=== PATIENT | female | born 1970 | race Caucasian/White ===

== ENCOUNTER → 2016-07-29 07:44 | Emergency (ER) | payer OTHER ==
[~2016-07-29 07:44] MED LIST: Dexamethasone IV* 4 MG/ML 1 ML (4 MG) IV SLOW PU ONE; Ketorolac INJ* 30 MG/ML 1 ML VIAL IV ONE; NS 0.9% 1000 ML* 1,000 ML IV ONE; Orphenadrine Citrate IV* 30 MG/ML 2 ML VIAL IM ONE
[2016-07-29 09:28] LABS: Hematocrit 41 % (35-47); Hemoglobin 13.8 g/dl (12.0-16.0); Mean Corpuscular HGB Conc 33 g/dl (31-36); Mean Corpuscular Hemoglobin 34 pg (27-31); Mean Corpuscular Volume 103 fL (80-97); Mean Platelet Volume 8 um3 (7.4-10.4); Red Blood Count 4.01 10^6/ul (4.0-5.4); Red Cell Distribution Width 13 % (10.5-15); White Blood Count 8.9 10^3/ul (3.5-10.8)
[2016-07-29 09:43] LABS: ALT 19 U/L (7-52); AST 23 U/L (13-39); Albumin 4.4 g/dL (3.2-5.2); Alkaline Phosphatase 36 U/L (34-104); Anion Gap 7 mmol/L (2-11); BUN/Creatinine Ratio 12.7 (8-20); Blood Urea Nitrogen 9 mg/dL (6-24); CO2 Carbon Dioxide 27 mmol/L (22-32); Calcium 9.4 mg/dL (8.6-10.3); Chloride 102 mmol/L (101-111); EGFR Non-African American 89.4 (>60); Globulin 2.8 g/dL (2-4); Glucose 89 mg/dL (70-100); Lipase 29 U/L (11.0-82.0); Potassium 3.7 mmol/L (3.5-5.0); Sodium 136 mmol/L (133-145); Total Protein 7.2 g/dL (6.4-8.9)
--- NOTE | 2016-07-29 11:50 | RAD ---
INDICATION: Right-sided pelvic pain. COMPARISON: Comparison is made with a prior pelvic ultrasound from June 04, 2008. TECHNIQUE: Multiple real-time transvaginal images of the pelvis were obtained. FINDINGS: The uterus is normal in size, shape and echogenicity. The uterus measured 9.0 x 4.6 x 5.3 cm. The endometrial echo measured 0.8 cm in thickness. There is an IUD which appears to be in appropriate position within the endometrial cavity. The right ovary measured 2.6 x 1.9 x 1.9 cm. The left ovary measured 2.2 x 1.7 x 1.3 cm. There is vascular flow within both ovaries. There is a small 0.8 cm follicular cyst within the left ovary. No free intraperitoneal fluid is seen. IMPRESSION: IUD IN PLACE, OTHERWISE UNREMARKABLE STUDY.
[2016-07-29 13:11] VITALS: BP 132/86
--- NOTE | 2016-07-30 07:09 | ED ---
Tommy Calhoun Aidan, scribed for Efrain Austin MD on 07/29/16 at 0946 . Back Pain - HPI Summary HPI Summary: 45 y/o female presents to the ED with a complaint of acute, constant, moderate- to-severe (8/10) right lower back pain that began 3 days ago in the morning and has worsened since onset. When asked about the location of her pain, she points to a focal area of the right lower lumbar. She denies any radiating numbness or tingling down the legs, fever, nausea, vomiting, constipation, diarrhea, or CP. Additionally, she denies any heavy drinking or strenuous activity during the night of onset. Her pain is slightly alleviated by applying pressure where she has pain and by lying down in such a way that supports her back. Extension aggravates her back pain. Her pain is also aggravated by driving over bumps in the car and by lifting up her leg to change pedals when she is driving. The pain occasionally radiates to her abdomen for several seconds. Pt took 800mg of Ibuprofen, which did not alleviate any pain. Hx of back pain, abdominal pain, and ovarian cyst. - History of Current Complaint Chief Complaint: EDBackInjuryPain Stated Complaint: BACK PAIN Time Seen by Provider: 07/29/16 08:04 Hx Obtained From: Patient Hx Last Menstrual Period: 08/08/15 Onset/Duration: Sudden Onset, Lasting Days, Still Present Onset/Duration: Started Days Ago, Still Present Timing: Constant Back Pain Location: Is Discrete @ - right lower back Severity Initially: Moderate Severity Currently: Moderate - [id number] Pain Intensity: 8 Pain Scale Used: 0-10 Numeric Character: Sharp Aggravating Symptom(s): Bending - extension aggravates pain, driving over bumps in the car and lifting her leg to change gas/break pedals while driving aggravates pain Alleviating Symptom(s): Position - Her pain is slightly alleviated by applying pressure where she has pain and by lying down in such a way that supports her back. Associated Signs And Symptoms: Positive: Negative - Risk Factors AAA Risk Factors: Smoking TAD Risk Factors: Smoking - Allergies/Home Medications Allergies/Adverse Reactions: Allergies Allergy/AdvReac Type Severity Reaction Status Date / Time No Known Allergies Allergy Verified 09/08/15 14:47 PMH/Surg Hx/FS Hx/Imm Hx Endocrine/Hematology History: Denies: Hx Anticoagulant Therapy, Hx Diabetes, Other Endocrine/Hematological Disorders Cardiovascular History: Reports: Hx Supraventricular Ventricular Tachycardia - and cath ablation Denies: Other Cardiovascular Problems/Disorders Respiratory History: Denies: Other Respiratory Problems/Disorders GI History: Denies: Other GI Disorders History: 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 Musculoskeletal History: Denies: Other Musculoskeletal History Sensory History: Denies: Other Sensory Impairments Opthamlomology History: Denies: Other Sensory Impairments Neurological History: Denies: Other Neuro Impairments/Disorders Psychiatric History: Denies: Other Psychiatric Issues/Disorders Infectious Disease History: No Infectious Disease History: Denies: Traveled Outside the [place] in Last 30 Days - Family History Known Family History: Positive: Cardiac Disease, Hypertension - pt denies, Diabetes, Other - emphysema - Social History Occupation: Unemployed Lives: Alone Alcohol Use: Daily Substance Use Type: Reports: None Smoking Status (MU): Heavy Every Day Tobacco Smoker - 1/2 PPD for past 10 years and currently Do You Chew or Dip Tobacco: No Have You Chewed or Dipped Tobacco in the LAST YEAR: No Have You Smoked in the Last Year: Yes Household Exposure: Yes Review of Systems Constitutional: Negative Eyes: Negative ENT: Negative Cardiovascular: Negative Respiratory: Negative Gastrointestinal: Negative Genitourinary: Negative Positive: Arthralgia - back pain. Negative: Myalgia, Decreased ROM, Edema Skin: Negative Neurological: Negative Psychological: Normal All Other Systems Reviewed And Are Negative: Yes Physical Exam Triage Information Reviewed: Yes Vital Signs On Initial Exam: Initial Vitals Temp Pulse Resp BP Pulse Ox 97.8 F 81 17 144/99 100 07/29/16 07:46 07/29/16 07:46 07/29/16 07:46 07/29/16 07:46 07/29/16 07:46 Vital Signs Reviewed: Yes Appearance: Positive: Well-Appearing, Pain Distress Skin: Positive: Warm, Skin Color Reflects Adequate Perfusion, Dry Head/Face: Positive: Normal Head/Face Inspection Eyes: Positive: EOMI, HUNTER ENT: Positive: Normal ENT inspection, Other - TMs intact Neck: Positive: Supple, Nontender Respiratory/Lung Sounds: Positive: Clear to Auscultation, Breath Sounds Present Cardiovascular: Positive: RRR, Pulses are Symmetrical in both Upper and Lower Extremities, Other - no gallops, S1, S2. Negative: Murmur, Rub Abdomen Description: Positive: Nontender, Soft. Negative: Distended, Guarding - no rebound Bowel Sounds: Positive: Present Musculoskeletal: Positive: Other - extremities warm. radial pulses 3+ bilaterally. Dorsalis pedis and posterior tibial 2+ bilaterally. Patellar reflex 2+ and Achilles tendon reflex 2+ bilaterally. Tenderness to palpation in the right lower back. No tenderness in surrounding areas in the left or spinous processes. Strength intact 5/5. Straight leg raise negative.. Negative: Strength/ROM Intact - ROM limited to about 10% in extension by pain, flexion decreases pain, fingers able to touch floor, lateral movement unaffected, full ROM Neurological: Positive: Normal, Sensory/Motor Intact, Alert, Oriented to Person Place, Time Psychiatric: Positive: Normal, Affect/Mood Appropriate AVPU Assessment: Alert Diagnostics - Vital Signs Vital Signs Temp Pulse Resp BP Pulse Ox 07/29/16 07:48 97.8 F 81 17 144/99 100 07/29/16 07:46 97.8 F 81 17 144/99 100 - Laboratory Lab Results: Lab Results 07/29/16 07/29/16 07/29/16 Range/Units 09:10 09:10 09:10 WBC 8.9 (3.5-10.8) 10^3/ul RBC 4.01 (4.0-5.4) 10^6/ul Hgb 13.8 (12.0-16.0) g/dl Hct 41 (35-47) % MCV 103 H (80-97) fL MCH 34 H (27-31) pg MCHC 33 (31-36) g/dl RDW 13 (10.5-15) % Plt Count 304 (150-450) 10^3/ul MPV 8 (7.4-10.4) um3 Neut % (Auto) 71.4 (38-83) % Lymph % (Auto) 16.7 L (25-47) % Lipscomb % (Auto) 9.1 H (1-9) % Eos % (Auto) 1.8 (0-6) % Baso % (Auto) 1.0 (0-2) % Absolute Neuts (auto) 6.3 (1.5-7.7) 10^3/ul Absolute Lymphs (auto) 1.5 (1.0-4.8) 10^3/ul Absolute Monos (auto) 0.8 (0-0.8) 10^3/ul Absolute Eos (auto) 0.2 (0-0.6) 10^3/ul Absolute Basos (auto) 0.1 (0-0.2) 10^3/ul Absolute Nucleated RBC 0 10^3/ul Nucleated RBC % 0 Sodium 136 (133-145) mmol/L Potassium 3.7 (3.5-5.0) mmol/L Chloride 102 (101-111) mmol/L Carbon Dioxide 27 (22-32) mmol/L Anion Gap 7 (2-11) mmol/L BUN 9 (6-24) mg/dL Creatinine 0.71 (0.51-0.95) mg/dL Est GFR ( Amer) 115.0 (>60) Est GFR (Non-Af Amer) 89.4 (>60) BUN/Creatinine Ratio 12.7 (8-20) Glucose 89 (70-100) mg/dL Lactic Acid (0.5-2.0) mmol/L Calcium 9.4 (8.6-10.3) mg/dL Total Bilirubin 0.70 (0.2-1.0) mg/dL AST 23 (13-39) U/L ALT 19 (7-52) U/L Alkaline Phosphatase 36 (34-104) U/L Ammonia 48 (16-53) mol/L C-Reactive Protein 3.50 (< 5.00) mg/L Total Protein 7.2 (6.4-8.9) g/dL Albumin 4.4 (3.2-5.2) g/dL Globulin 2.8 (2-4) g/dL Albumin/Globulin Ratio 1.6 (1-3) Lipase 29 (11.0-82.0) U/L Beta HCG, Quant < 0.60 mIU/mL 07/29/16 Range/Units 09:10 WBC (3.5-10.8) 10^3/ul RBC (4.0-5.4) 10^6/ul Hgb (12.0-16.0) g/dl Hct (35-47) % MCV (80-97) fL MCH (27-31) pg MCHC (31-36) g/dl RDW (10.5-15) % Plt Count (150-450) 10^3/ul MPV (7.4-10.4) um3 Neut % (Auto) (38-83) % Lymph % (Auto) (25-47) % Lipscomb % (Auto) (1-9) % Eos % (Auto) (0-6) % Baso % (Auto) (0-2) % Absolute Neuts (auto) (1.5-7.7) 10^3/ul Absolute Lymphs (auto) (1.0-4.8) 10^3/ul Absolute Monos (auto) (0-0.8) 10^3/ul Absolute Eos (auto) (0-0.6) 10^3/ul Absolute Basos (auto) (0-0.2) 10^3/ul Absolute Nucleated RBC 10^3/ul Nucleated RBC % Sodium (133-145) mmol/L Potassium (3.5-5.0) mmol/L Chloride (101-111) mmol/L Carbon Dioxide (22-32) mmol/L Anion Gap (2-11) mmol/L BUN (6-24) mg/dL Creatinine (0.51-0.95) mg/dL Est GFR ( Amer) (>60) Est GFR (Non-Af Amer) (>60) BUN/Creatinine Ratio (8-20) Glucose (70-100) mg/dL Lactic Acid 0.7 (0.5-2.0) mmol/L Calcium (8.6-10.3) mg/dL Total Bilirubin (0.2-1.0) mg/dL AST (13-39) U/L ALT (7-52) U/L Alkaline Phosphatase (34-104) U/L Ammonia (16-53) mol/L C-Reactive Protein (< 5.00) mg/L Total Protein (6.4-8.9) g/dL Albumin (3.2-5.2) g/dL Globulin (2-4) g/dL Albumin/Globulin Ratio (1-3) Lipase (11.0-82.0) U/L Beta HCG, Quant mIU/mL Result Diagrams: 07/29/16 09:10 07/29/16 09:10 Lab Statement: Any lab studies that have been ordered have been reviewed, and results considered in the medical decision making process. - Ultrasound No standard instances Ultrasound Interpretation: No Acute Changes - TRANSVAGINAL US IMPRESSION: IUD IN PLACE, OTHERWISE UNREMARKABLE STUDY. Ultrasound Interpretation Completed By: Radiologist Back Pain Course/Dx - Course Course Of Treatment: Previously healthy 45 y/o woman with acute onset back pain beginning 3 days ago that has worsened today. Based on the focal tenderness on the right side and lack of any abdominal symptoms, we are leading on differential diagnosis of musculoskeletal strain vs. herniated disk vs ovarian cyst. Herniated Disk is less likely because of lack of neuro sx on physical. Due to hx, ruptured ovarian cyst should be ruled out, though lack of abdominal tenderness, rebound or guarding makes this less likely. I believe Sx are secondary to lumbar strain therefore Pt given toradol, noroflex, and decadrone. After meds, sx improved. Pt is ambulating with a good steady walk, declined any abd/pelv ct to rule out kidney stones since she is feeling better. Therefore discharge home with PCP follow up. 45 y/o female presents to the ED with a complaint of acute, constant, acmkujbc-ce-cjbgst (8/10) right lower back pain that began 3 days ago in the morning and has worsened since onset. When asked about the location of her pain, she points to a focal area of the right lower lumbar. She denies any radiating numbness or tingling down the legs, fever, nausea, vomiting, constipation, diarrhea, or CP. Additionally, she denies any heavy drinking or strenuous activity during the night of onset. Her pain is slightly alleviated by applying pressure where she has pain and by lying down in such a way that supports her back. Extension aggravates her back pain. Her pain is also aggravated by driving over bumps in the car and by lifting up her leg to change pedals when she is driving. The pain occasionally radiates to her abdomen for several seconds. Pt took 800mg of Ibuprofen, which did not alleviate any pain. Hx of back pain, abdominal pain, and ovarian cyst. - Diagnoses Differential Diagnosis/HQI/PQRI: Positive: Arthritis, Herniated Disc, Strain, Sprain, Other - Ovarian cyst Provider Diagnoses: Back pain Discharge - Discharge Plan Condition: Stable Disposition: HOME Discharge Disposition Comment: Please follow up with your primary care provider within 2 days. Prescriptions: Ibuprofen TAB* [Motrin TAB* 600 MG] 600 mg PO Q6H PRN #20 tab PRN Reason: Pain Methocarbamol [Robaxin-750 MG TAB] 750 mg PO TID #12 tab Methylprednisolone [Medrol Dosepak 4 MG*] 0 mg PO .SEE DANTE [employer]STRUCTION #1 dante oxyCODONE/Acetamin 5/325 MG* [Percocet 5/325 TAB*] 1 tab PO Q6H PRN #12 tab MDD 4 tabs /day PRN Reason: Pain Patient Education Materials: Back Pain (ED) Referrals: Willam Hollingsworth MD [Primary Care Provider] - The documentation as recorded by the Tommy guerrero Aidan accurately reflects the service I personally performed and the decisions made by Norman aragon Walter, MD.
== END | disposition home or self-care (01) ==
LOC: ED 07:44
DX: M54.9 Dorsalgia, unspecified (principal)
CPT/HCPCS: 36415; 76830; 80053; 82140; 83605; 83690; 84702; 85025; 86140; 96374; 96375; 99283; J1100; J1885; J2360

== ENCOUNTER 2018-12-30 06:54 | Emergency (ER) | payer OTHER ==
--- NOTE | 2018-12-30 07:12 | ED ---
Abdominal Pain/Female - HPI Summary HPI Summary: This pt is a 48 y/o female presenting to [facility] c/o progressive worsening lower abdominal pain since [id number] today. Pt reports she woke up at 00:30 for no particular reason and was doing "household stuff" when she began to experience abd pain. She notes she is currently menstruating. Pt states she always uses tampons when menstruating and today when she changed her tampon earlier it was painful. She notes she has chills. Denies fever, burning with urination, abnormal vaginal bleeding or discharge. PMHx ovarian cyst (pt does not know which side). Denies any hx abdominal surgeries. Pt has 2 children and were delivered vaginally. She has a copper IUD and has had it for 10-11 years now (it is her second IUD). - History of Current Complaint Chief Complaint: EDAbdPain Stated Complaint: CRAMPS PER PT Time Seen by Provider: 12/30/18 07:04 Hx Obtained From: Patient Hx Last Menstrual Period: 08/08/15 Onset/Duration: Lasting Hours, Still Present Timing: Hours Severity Currently: Severe Pain Intensity: 10 Pain Scale Used: 0-10 Numeric Location: Suprapubic Radiates: No Aggravating Factor(s): Nothing Alleviating Factor(s): Nothing Associated Signs and Symptoms: Negative: Fever, Urinary Symptoms, Vaginal Bleeding, Vaginal Discharge Allergies/Adverse Reactions: Allergies Allergy/AdvReac Type Severity Reaction Status Date / Time No Known Allergies Allergy Verified 09/08/15 14:47 PMH/Surg Hx/FS Hx/Imm Hx Endocrine/Hematology History: Denies: Hx Anticoagulant Therapy, Hx Diabetes, Other Endocrine/Hematological Disorders Cardiovascular History: Denies: Other Cardiovascular Problems/Disorders Respiratory History: Denies: Other Respiratory Problems/Disorders GI History: Denies: Other GI Disorders History: 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 Musculoskeletal History: Denies: Other Musculoskeletal History Sensory History: Denies: Other Sensory Impairments Opthamlomology History: Denies: Other Sensory Impairments Neurological History: Denies: Other Neuro Impairments/Disorders Psychiatric History: Denies: Other Psychiatric Issues/Disorders Infectious Disease History: No Infectious Disease History: Denies: Traveled Outside the [place] in Last 30 Days - Family History Known Family History: Positive: Cardiac Disease, Hypertension - pt denies, Diabetes, Other - emphysema - Social History Alcohol Use: Daily Substance Use Type: Reports: None Smoking Status (MU): Heavy Every Day Tobacco Smoker - 1/2 PPD for past 10 years and currently Have You Smoked in the Last Year: Yes Review of Systems Positive: Chills. Negative: Fever Positive: Abdominal Pain Negative: dysuria, discharge, other - NEGATIVE: vaginal bleeding All Other Systems Reviewed And Are Negative: Yes Physical Exam - Summary Physical Exam Summary: Constitutional: Well-developed, Well-nourished, Alert. (-) Distressed Skin: Warm, Dry HENT: Normocephalic; Atraumatic Eyes: Conjunctiva normal Neck: Musculoskeletal ROM normal neck. (-) JVD, (-) Stridor, (-) Nuchal rigidity Cardio: Rhythm regular, rate normal, Heart sounds normal; Intact distal pulses; Radial pulses are 2+ and symmetric. (-) Murmur Pulmonary/Chest wall: Effort normal. (-) Respiratory distress, (-) Wheezes, (-) Rales Abd: Soft, mild suprapubic tenderness, (-) Distension, (-) Guarding, (-) Rebound : External Exam: normal labia, no masses, lacerations or abnormal lesions visualized Speculum Exam: Cervical os with IUD strings,, no signs of inflammation, moderate amount of blood in vault Bimanual Exam: no CMT, no adnexal tenderness bilaterally Musculoskeletal: (-) Edema Lymph: (-) Cervical adenopathy Neuro: Alert, Oriented x3 Psych: Mood and affect Normal Triage Information Reviewed: Yes Vital Signs On Initial Exam: Initial Vitals Temp Pulse Resp BP Pulse Ox 98.0 F 91 20 139/107 99 12/30/18 06:56 12/30/18 06:56 12/30/18 06:56 12/30/18 06:56 12/30/18 06:56 Vital Signs Reviewed: Yes Procedures - Sedation Patient Received Moderate/Deep Sedation with Procedure: No Diagnostics - Vital Signs Vital Signs Temp Pulse Resp BP Pulse Ox 12/30/18 06:56 98.0 F 91 20 139/107 99 - Laboratory Result Diagrams: 12/30/18 07:34 12/30/18 07:34 Lab Statement: Any lab studies that have been ordered have been reviewed, and results considered in the medical decision making process. - Ultrasound No standard instances Ultrasound Interpretation Completed By: Radiologist Summary of Ultrasound Findings: Transvaginal US IMPRESSION: Negative pelvic ultrasound. Dr. Munguia has reviewed this report. Re-Evaluation - Re-Evaluation First Eval Re-Evaluation Time: 08:55 Change: Improved Comment: US neg for acute pathology, labs w mild leukocytosis, given bacteria in urine will treat for UTI Abdominal Pain Fem Course/Dx - Course Course Of Treatment: 48 y/o F p/w suprapubic pressure/pain since 1 am. - ddx includes: UTI, ovarian cyst, torsion, PID, TOA, menstrual cramping. Relatively benign exam, no fevers or vaginal discharge to suggest PID or TOA. Preg neg. - abd soft, exam notable for blood in vault. Check labs, UA,TVUS - Diagnoses Provider Diagnoses: Suprapubic pain, UTI (urinary tract infection), Menstrual cramps Discharge ED - Sign-Out/Discharge Documenting (check all that apply): Patient Departure - Discharge home - Discharge Plan Condition: Stable Disposition: HOME Prescriptions: Cephalexin CAP* [Keflex CAP*] 500 mg PO BID 5 Days #10 cap Fluconazole 150 MG TAB* [Diflucan 150 MG TAB*] 150 mg PO ED ONCE 1 Days #1 tablet Patient Education Materials: Dysuria (ED) Referrals: Willam Hollingsworth MD [Primary Care Provider] - Additional Instructions: You were seen in the emergency department for suprapubic pain. Your US was unremarkable. We'll treat you for a UTI. Please take Keflex for 5 days. If any studies were not completed at the time of discharge you will be called with the relevant results. Please follow up with your primary care doctor in next 2-3 days and return to emergency department for worsening or concerning symptoms. It was a pleasure taking care of you today. - Billing Disposition and Condition Condition: STABLE Disposition: Home - Attestation Statements Document Initiated by Debby: Yes Documenting Scribe: Odalys Nair Provider For Whom Debby is Documenting (Include Credential): Rajiv Munguia MD Scribe Attestation: Odalys Calhoun, scribed for Rajiv Munguia MD on 12/30/18 at 0911. Scribe Documentation Reviewed: Yes Provider Attestation: The documentation as recorded by the Odalys guerrero accurately reflects the service I personally performed and the decisions made by me, Rajiv Munguia MD Status of Scribe Document: Viewed
[2018-12-30] MEDS ORDERED: Acetaminophen TAB* 325 MG PO ONE (07:13)
[2018-12-30] MEDS ORDERED: Ibuprofen TAB* 600 MG PO ONE (07:13)
[2018-12-30 07:42] LABS: ABS Basophils 0.1 10^3/ul (0-0.2); ABS Eosinophils 0.4 10^3/ul (0-0.6); ABS Lymphocytes 1.2 10^3/ul (1.0-4.8); ABS Monocytes 1.2 10^3/ul (0-0.8); ABS Neutrophils 9.9 10^3/ul (1.5-7.7); Eosinophil % 3.2 %; Hematocrit 40 % (35-47); Hemoglobin 13.7 g/dL (12.0-16.0); Lymphocyte % 9.7 %; Mean Corpuscular HGB Conc 35 g/dL (31-36); Mean Corpuscular Hemoglobin 35 pg (27-31); Mean Corpuscular Volume 100 fL (80-97); Mean Platelet Volume 7.2 fL (7.4-10.4); Nucleated Red Blood Cells % 0.1; Platelet Count 329 10^3/uL (150-450); Red Blood Count 3.94 10^6 /uL (3.70-4.87); Red Cell Distribution Width 13 % (10-15); White Blood Count 12.9 10^3/uL (3.5-10.8)
[2018-12-30 07:46] LABS: Urine Appearance Clear; Urine Bacteria Absent (Absent); Urine Bilirubin Negative (Negative); Urine Blood 3+ (Negative); Urine Color Yellow; Urine Glucose Negative (Negative); Urine Ketones Negative (Negative); Urine Nitrite Negative (Negative); Urine Protein Negative (Negative); Urine Red Blood Cell 3+(>10/hpf) (Absent); Urine Specific Gravity 1.009 (1.010-1.030); Urine Squamous Epithelial Cell Present (Absent); Urine Urobilinogen Negative (Negative); Urine White Blood Cell 1+(6-10/hpf) (Absent)
[2018-12-30 07:57] LABS: ALT 23 U/L (7-52); AST 20 U/L (13-39); Albumin 4.4 g/dL (3.2-5.2); Albumin/Globulin Ratio 1.5 (1-3); Alkaline Phosphatase 60 U/L (34-104); Anion Gap 5 mmol/L (2-11); BUN/Creatinine Ratio 14.6 (8-20); Blood Urea Nitrogen 12 mg/dL (6-24); CO2 Carbon Dioxide 27 mmol/L (22-32); Calcium 9.7 mg/dL (8.6-10.3); Chloride 104 mmol/L (101-111); EGFR African American 90.4 (>60); EGFR Non-African American 74.7 (>60); Glucose 109 mg/dL (70-100); Potassium 4.1 mmol/L (3.5-5.0); Sodium 136 mmol/L (135-145); Total Protein 7.4 g/dL (6.4-8.9)
[2018-12-30 08:03] LABS: HCG Pregnancy < 0.60 mIU/mL
[2018-12-30] MEDS ORDERED: Cephalexin CAP* 500 MG PO ONE (08:55)
[2018-12-30 09:29] VITALS: BP 131/84
== END 2018-12-30 09:12 | disposition home or self-care (01) ==
LOC: ED 06:54
DX: N39.0 Urinary tract infection, site not specified (principal); N94.6 Dysmenorrhea, unspecified; Z97.5 Presence of (intrauterine) contraceptive device; Z32.02 Encounter for pregnancy test, result negative; F17.200 Nicotine dependence, unspecified, uncomplicated
CPT/HCPCS: 36415; 76830; 80053; 81003; 81015; 84702; 85025; 87086; 99282; A9270-GY